=== PATIENT | female | born 1995 | race Two or more races ===

== ENCOUNTER 2024-06-26 12:11 | Emergency (ER) | payer OTHER ==
[~2024-06-26] VITALS: Ht 157.5 cm; Wt 81.6 kg
[2024-06-26] MEDS ORDERED: PRENATABS RX T1 EACH (18:20)
[2024-06-26 19:56] LABS: HEMATOCRIT 34.8 % (34.1-44.9); HEMOGLOBIN 11.8 g/dL (11.2-15.7); MEAN CORPUSCULAR HEMOGLOBIN 25.6 pg (25.6-32.2); PLATELET COUNT 240 K/uL (163-369); RED BLOOD COUNT 4.61 M/uL (3.93-5.22)
[2024-06-26 19:57] LABS: BASO % 0.2 % (0.1-1.2); EOS % 1.4 % (0.7-7.0); LYMPH % 22.2 % (19.3-53.1); MONO % 4.8 % (4.7-12.5); NEUT % 71.1 % (34.0-71.1)
== END 2024-06-26 21:46 | disposition home or self-care (01) ==
LOC: ER 12:11
PROVIDERS: General Practice
DX: O20.8 Other hemorrhage in early pregnancy (principal); Z3A.10 10 weeks gestation of pregnancy

== ENCOUNTER 2024-11-12 20:10 | Outpatient (CLI) | payer OTHER ==
[2024-11-12 18:18] VITALS: BP 125/85
[~2024-11-12 20:10] MED LIST: PRENATABS RX T1 EACH
[2024-11-12] MEDS ORDERED: ADULT ASPIRIN81 MG PO (20:55)
[2024-11-12 20:58] LABS: BASO % 0.2 % (0.1-1.2); EOS # 0.08 (0.04-0.54); EOS % 0.8 % (0.7-7.0); LYMPH # 2.19 (1.18-3.74); LYMPH % 21.0 % (19.3-53.1); MEAN PLATELET VOLUME 11.40 fl (9.4-12.4); MONO # 0.57 (0.24-0.82); MONO % 5.5 % (4.7-12.5); NEUT # 7.53 (1.56-6.13); NEUT % 71.9 % (34.0-71.1); RED CELL DISTRIBUTION WIDTH 13.3 % (11.6-14.4); URINE APPEARANCE Clear; URINE BILIRRUBIN Negative (NEGATIVE); URINE BLOOD Negative; URINE COLOR Yellow; URINE GLUCOSE Negative (NEGATIVE); URINE KETONE Negative (NEGATIVE); URINE LEUKOCYTE Trace; URINE NITRATE Negative; URINE PROTEIN Negative (NEGATIVE); URINE UROBILINOGEN 0.2 E.U./dl
[2024-11-12 21:02] LABS: URINE BACTERIA 3575.6 uL (0.0-1933); URINE EPITHELIAL CELLS 38.3 uL (0.0-38.8); URINE WBC 52.9 uL (0.0-23.2)
[2024-11-12 21:17] LABS: URINE CAST 0.14 uL (0.0-1.40); URINE RBC 1.3 uL (0.0-20.8)
[2024-11-12 21:18] LABS: ALT/SGPT 25.0 U/L (12-78); AST/SGOT 14.0 U/L (15-37); BILIRUBIN TOTAL 0.4 mg/dL (0.3-1.2); BUN CREA RATIO 21.0 (7.0-25.0); CREATININE SERUM 0.48 mg/dL (0.55-1.02); GFR 152.9; GLOBULINA 3.5 G/DL (2.4-3.5); GLUCOSE FASTING 88.0 mg/dL (65-100); OSMOLALITY SERUM 278.0 MOSM/KG (275-295)
[2024-11-12] MEDS ORDERED: RINGERS SOLUTION,LACTATED 1,000 ML IV SCH (23:00)
[2024-11-12] MEDS ORDERED: CEFTRIAXONE SODIUM 2,000 MG VIAL IV ONE (23:00)
[2024-11-12 23:44] VITALS: BP 124/85; O2SAT 100
[2024-11-13 03:57] VITALS: BP 114/80
[2024-11-13 06:27] VITALS: BP 119/76; O2SAT 99
[2024-11-13 09:07] VITALS: BP 119/76
== END 2024-11-13 09:29 | disposition home or self-care (01) ==
LOC: OBS/DEL 20:10
PROVIDERS: ATTEND Obstetrics & Gynecology
DX: O36.8130 Decreased fetal movements, third trimester, not applicable or unspecified (principal); O24.419 Gestational diabetes mellitus in pregnancy, unspecified control; Z3A.30 30 weeks gestation of pregnancy